=== PATIENT | female | born 1980 | race Caucasian/White ===

== ENCOUNTER → 2019-10-16 09:34 | Outpatient (BNVA) | payer MEDICARE, OTHER, SELFPAY | PROVIDERS: Family Provider Family Medicine; PCP Nurse Practitioner; Visit Provider Specialist | DX: G35 Multiple sclerosis (principal); F17.210 Nicotine dependence, cigarettes, uncomplicated | CPT/HCPCS: 99213 ==

== ENCOUNTER → 2019-11-02 07:58 | Outpatient (BNVA) | payer MEDICARE, OTHER, SELFPAY | PROVIDERS: Family Provider Family Medicine; PCP Nurse Practitioner; Visit Provider Specialist | DX: G43.711 Chronic migraine without aura, intractable, with status migrainosus (principal); G35 Multiple sclerosis; F17.290 Nicotine dependence, other tobacco product, uncomplicated | CPT/HCPCS: 64615; 99213; J0585 ==

== ENCOUNTER → 2020-01-25 08:30 | Outpatient (BNVA) | payer MEDICARE, OTHER, SELFPAY | PROVIDERS: Family Provider Family Medicine; PCP Nurse Practitioner; Visit Provider Specialist | DX: G43.711 Chronic migraine without aura, intractable, with status migrainosus (principal); G35 Multiple sclerosis; G47.419 Narcolepsy without cataplexy; F17.210 Nicotine dependence, cigarettes, uncomplicated | CPT/HCPCS: 64615; 99213; J0585 ==

== ENCOUNTER 2020-08-26 06:59 | Outpatient (RCR) | payer MEDICARE, OTHER, SELFPAY ==
[2020-08-22 06:20] VITALS: BP 108/65; PULSE 96; RESP 18; TEMP 36.9; O2SAT 98
[2020-08-22 07:37] VITALS: BMI 21.9
[2020-08-23 07:03] VITALS: BP 115/73; PULSE 107; RESP 18; TEMP 37.1; O2SAT 98
[2020-08-24 07:08] VITALS: BP 93/74; PULSE 101; RESP 18; TEMP 36.7; O2SAT 98
[2020-08-25 06:55] VITALS: BP 122/78; PULSE 90; RESP 18; TEMP 36.8; O2SAT 100
[2020-08-26 06:51] VITALS: BP 125/78; PULSE 101; RESP 16; TEMP 37.1; O2SAT 97
== END 2020-09-05 23:59 | disposition home or self-care (01) ==
LOC: OPS 06:59
PROVIDERS: Visit Provider Specialist
DX: G35 Multiple sclerosis (principal)
CPT/HCPCS: 96365; 96366; J2930; J7050

== ENCOUNTER 2020-09-04 07:40 | Outpatient (CLI) | payer MEDICARE, OTHER, SELFPAY ==
--- NOTE | 2020-09-04 07:48 | MR_ITS ---
WS: [id number] MRI CERVICAL SPINE NONCONTRAST AND CONTRAST TECHNIQUE: Sagittal T1, T2 and STIR imaging. Axial T2, gradient, and fiesta imaging. CLINICAL INFORMATION: MS COMPARISON: MRI November 04, 2017 FINDINGS: Straightening of the normal cervical lordosis. Cord signal is normal. No significant cord atrophy. Sp inal canal is patent. No visualized demyelinating lesions within the cervical cord. Cord signal is no rmal. No abnormal gadolinium enhancement. C2-C3: Normal. C3-C4: Normal. C4-C5: Normal. C5-C6: Mild disc bulging with a tiny shallow central protrusion. Mild facet arthropathy. Spinal canal and foramen are patent. C6-C7: No significant disc bulging. Mild facet arthropathy. Spinal canal and foramen are patent. C7-T1: Normal. Visualized brain stem structures: Normal. Prevertebral soft tissues: Normal. MR/MR cervical spine wo/w [id number] IMPRESSION: 1. No demyelinating lesions within the cervical cord. Cervical cord signal is normal. 2. No significant cord atrophy. 3. Mild disc bulging C5-C6 with slight effacement of ventral thecal sac. Spina l canal and foramen are patent. 4. No other significant findings.
--- NOTE | 2020-09-04 07:48 | MR_ITS ---
WS: [id number] MRI HEAD WITH CONTRAST TECHNIQUE: Sagittal T1, T2 axial, T2 axial FLAIR, axial susceptibility weighted imaging, axial diffus ion weighted images, and coronal T2 images were obtained. Pre and post-T1 axial and post T1 coronal i mages. ADC and FSPGR images. CLINICAL INFORMATION: MS COMPARISON: MRI 4 , MRI 3 FINDINGS: No evidence of restricted diffusion to suggest acute ischemia. Ventricular system and basal cisterns are patent. Advanced patchy supratentorial periventricular white matter changes consistent with histo ry of chronic demyelinating disease. Lesion distribution and white matter burden is not significantly changed compared to the prior examination. No evidence of disease progression. Moderate symmetric at rophy involving the corpus callosum. Moderate to advanced T1 hypointense lesion load. Mild parenchyma l volume loss. No abnormal gadolinium enhancement to indicate active disease. Normal visualized dural venous sinuses. Normal optic chiasm and pituitary infundibulum. No hemosideri n on susceptibly weighted images. 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 MR/MR head wo/w con [id number] IMPRESSION: 1. Moderate to advanced patchy supratentorial white matter changes consistent with chronic demyelinating disease. 2. Number and distribution of lesions is not significantly changed compared to previous. No evidence of disease progression. 3. Moderate symmetric atrophy of the corpus callosum. 4. Moderate to advanced T1 hypointense lesion load. 5. No enhancing lesions to indicate active disease.
== END 2020-09-04 07:41 | disposition home or self-care (01) ==
LOC: RADWPI 07:44
PROVIDERS: PCP Nurse Practitioner; Visit Provider Specialist
DX: G35 Multiple sclerosis (principal); G31.9 Degenerative disease of nervous system, unspecified
CPT/HCPCS: 70553; 72156; A9579

== ENCOUNTER → 2020-10-09 13:28 | Outpatient (BNVA) | payer OTHER, MEDICARE, SELFPAY | PROVIDERS: PCP Nurse Practitioner; Visit Provider Specialist | DX: G35 Multiple sclerosis (principal); G47.419 Narcolepsy without cataplexy; N31.9 Neuromuscular dysfunction of bladder, unspecified; F17.210 Nicotine dependence, cigarettes, uncomplicated | CPT/HCPCS: 99214 ==

== ENCOUNTER 2020-12-19 07:48 | Outpatient (CLI) | payer OTHER, MEDICARE, SELFPAY ==
--- NOTE | 2020-12-19 08:00 | US_ITS ---
WS: [id number] RENAL ULTRASOUND HISTORY: NEUROGENIC BLADDER COMPARISON: None available. TECHNIQUE: 2-D and color Doppler imaging of the kidney submitted. Right kidney: 11.5 cm x 4.9 cm x 4.1 cm. Normal size kidney. Mild increased echogenicity with no hydronephrosis. Left kidney: 10.8 cm x 4.1 cm x 4.4 cm. Normal size with slight increased echogenicity. No hydronephrosis. Aorta: Normal. Urinary Bladder: Normally distended urinary bladder. No intraluminal filling defects. US/US renal BI* [id number] IMPRESSION: 1. No hydronephrosis. 2. Mild chronic medical renal disease. 3. Normally distended bladder with no intraluminal filling defects.
== END 2020-12-19 07:49 | disposition home or self-care (01) ==
LOC: RAD 07:51
PROVIDERS: PCP Nurse Practitioner; Visit Provider Urology
DX: N31.9 Neuromuscular dysfunction of bladder, unspecified (principal); N18.9 Chronic kidney disease, unspecified
CPT/HCPCS: 76770; 81003

== ENCOUNTER → 2021-07-08 13:19 | Outpatient (BNVA) | payer OTHER, MEDICARE, SELFPAY | PROVIDERS: PCP Nurse Practitioner; Visit Provider Specialist | DX: G35 Multiple sclerosis (principal); N31.9 Neuromuscular dysfunction of bladder, unspecified; G47.419 Narcolepsy without cataplexy; M79.7 Fibromyalgia; F32.A Depression, unspecified; F17.210 Nicotine dependence, cigarettes, uncomplicated | CPT/HCPCS: 99214 ==

== ENCOUNTER 2021-10-16 07:55 | Outpatient (CLI) | payer OTHER, MEDICARE, SELFPAY ==
--- NOTE | 2021-10-16 08:11 | US_ITS ---
WS: [id number] TRANSABDOMINAL PELVIC ULTRASOUND HISTORY: LLQ ABDOMINAL PAIN/OVARIAN CYST Patient refused transvaginal imaging. COMPARISON: None available. Status post hysterectomy. No midline mass. Right ovary: Prior oophorectomy. Left ovary: 4.3 cm x 3.1 cm x 2.5 cm; no solid or cystic mass. Small follicles with very mild increas ed echogenicity suggesting hemorrhage and septations. No solid mass. No free fluid in the cul-de-sac. US/US pelvic complete* [id number] IMPRESSION: 1. Unremarkable appearing LEFT ovary. 2. Status post hysterectomy and RIGHT oophorectomy.
[2021-10-16 09:50] LABS: Add Urine Microscopic? NO; Charge for UA Resulting for Rev
[2021-10-16 09:57] LABS: Bilirubin Urine Neg (Negative); Blood Urine Neg (Negative); Glucose Urine UA Norm (Normal); Ketones Urine Negative (Negative); Leukocyte Esterase Urine Negative (Negative); Nitrate Urine Negative (Negative); Protein Urine Neg (Negative); Specific Gravity, Urine 1.005 (1.005-1.030); Urine Appearance Clear (CLEAR); Urine Color Yellow (Yellow); Urobilinogen Urine Norm (Negative); pH Urine 7 (5-7)
== END 2021-10-16 07:56 | disposition home or self-care (01) ==
LOC: RAD 08:05
PROVIDERS: Specialist; PCP Nurse Practitioner; Visit Provider Nurse Practitioner
DX: R10.32 Left lower quadrant pain (principal); G35 Multiple sclerosis; Z90.710 Acquired absence of both cervix and uterus; Z90.721 Acquired absence of ovaries, unilateral
CPT/HCPCS: 76856; 81003

== ENCOUNTER 2021-12-22 07:49 | Outpatient (CLI) | payer OTHER, MEDICARE, SELFPAY ==
--- NOTE | 2021-12-22 07:58 | MR_ITS ---
WS: [id number] MRI BRAIN WITH AND WITHOUT CONTRAST HISTORY: MULTIPLE SCLEROSIS COMPARISON: 09/04/2020 and 01/02/2019 TECHNIQUE: Multiplanar imaging performed through the brain with MultiHance 15 ml's IV. No acute infarcts are seen. No diffusion abnormalities. There is extensive periventricular and callos al septal confluent and patchy signal abnormalities from patient's known demyelinating disease. Extra cortical lesion involving the posterior paramedian LEFT frontal lobe. T2 signal abnormality noted in the temporal lobe, RIGHT greater than LEFT. No white matter lesions are identified within the cerebel lum. No chris abnormality. No susceptibility artifacts or prior lacunar infarcts. There is very mild cerebral atrophy. There are a few scattered FLAIR signal hyperintensities in the c kika radiata which are probably ischemic and microvascular changes. Low-attenuation burden on the T1 sequence is similar to the prior examination. Clivus and pituitary gland are normal. Again noted is a complex cystic mass associated with the pinea l gland which is stable. Visualized posterior fossa and brainstem are also normal. Postcontrast images are negative for masses or vascular malformations. There is no enhancement within the white matter lesions. LEFT A1 segment is hypoplastic. No interval change. Dural venous sinuses are normal. Paranasal sinuses: Mild mucoperiosteal thickening throughout the sinus cavities. No air-fluid levels. Small mucous retention cyst or polyp in the LEFT maxillary sinus. Mastoid air cells: Normal. Calvarium and scalp: Normal. MR/MR head wo/w con [id number] IMPRESSION: 1. Moderate, stable white matter lesions in the distribution consistent with c hronic demyelinating disease. No progression in size and number of the lesions. 2. No focal areas of enhancement to suggest active demyelination. 3. Stable pineal gland complex cystic mass. 4. T1 hypointense periventricular lesions associated with demyelination are st able.
[2021-12-22] MEDS: gadobenate dimeglumine 20 mL vial IV (08:54)
== END 2021-12-22 07:50 | disposition home or self-care (01) ==
LOC: RAD 07:51
PROVIDERS: PCP Nurse Practitioner; Visit Provider Nurse Practitioner Family
DX: G35 Multiple sclerosis (principal)
CPT/HCPCS: 70553

== ENCOUNTER → 2022-01-14 08:21 | Outpatient (BNVA) | payer OTHER, MEDICARE, SELFPAY | PROVIDERS: PCP Family Medicine; Referring Provider Specialist; Visit Provider Anesthesiology Pain Medicine | DX: M51.16 Intervertebral disc disorders with radiculopathy, lumbar region (principal); M50.90 Cervical disc disorder, unspecified, unspecified cervical region; Z79.891 Long term (current) use of opiate analgesic | CPT/HCPCS: 99204 ==

== ENCOUNTER → 2022-01-26 13:38 | Outpatient (BNVA) | payer OTHER, MEDICARE, SELFPAY | PROVIDERS: PCP Family Medicine; Visit Provider Anesthesiology Pain Medicine | DX: M54.16 Radiculopathy, lumbar region (principal); F17.210 Nicotine dependence, cigarettes, uncomplicated | CPT/HCPCS: 62323; J1040; J3490 ==

== ENCOUNTER → 2022-02-10 08:39 | Outpatient (BNVA) | payer OTHER, MEDICARE, SELFPAY | PROVIDERS: PCP Family Medicine; Visit Provider Anesthesiology Pain Medicine | DX: M51.16 Intervertebral disc disorders with radiculopathy, lumbar region (principal); M50.90 Cervical disc disorder, unspecified, unspecified cervical region; F17.210 Nicotine dependence, cigarettes, uncomplicated | CPT/HCPCS: 99213 ==

== ENCOUNTER 2022-03-31 07:24 | Outpatient (CLI) | payer OTHER, MEDICARE, SELFPAY ==
--- NOTE | 2022-03-31 07:36 | MR_ITS ---
WS: [email or web address] MRI HEAD WITH CONTRAST TECHNIQUE: Sagittal T1, T2 axial, T2 axial FLAIR, axial susceptibility weighted imaging, axial diffus ion weighted images, and coronal T2 images were obtained. Pre and post-T1 axial and post T1 coronal i mages. ADC and FSPGR images. CLINICAL INFORMATION: MULTIPLE SCLEROSIS COMPARISON: 12/22/2021 and 09/04/2020. 2017 2018. FINDINGS: Moderate supratentorial periventricular and pericallosal white matter changes compatible with history of demyelinating disease. Diffuse moderate to advanced atrophy of the corpus callosum with multiple pericallosal lesions. Enhancing new lesion in the LEFT centrum semiovale compatible with active demyelinating disease. No o ther enhancing lesions. Moderate to advanced T1 hypointense lesion load. 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 Paranasal sinuses and mastoid air cells well aerated. MR/MR head wo/w con [id number] IMPRESSION: 1. Enhancing demyelinating lesion in the LEFT centrum semiovale compatible wit h active demyelinating lesion. No other enhancing lesions. 2. Moderate patchy periventricular supratentorial white matter changes otherwi se stable compared to previous. 3. Moderate to advanced atrophy corpus callosum appears slightly progressed wi th pericallosal and callosal lesions similar to previous. 4. Stable moderate to advanced T1 hypointense lesion load.
[2022-03-31] MEDS: gadobenate dimeglumine 5 mL vial IV (09:01)
== END 2022-03-31 07:25 | disposition home or self-care (01) ==
LOC: RAD 07:24
PROVIDERS: PCP Family Medicine; Visit Provider Nurse Practitioner Family
DX: G35 Multiple sclerosis (principal); G31.9 Degenerative disease of nervous system, unspecified
CPT/HCPCS: 70553

== ENCOUNTER → 2022-04-07 15:02 | Outpatient (BNVA) | payer OTHER, MEDICARE, SELFPAY | PROVIDERS: PCP Family Medicine; Visit Provider Specialist | DX: G35 Multiple sclerosis (principal) | CPT/HCPCS: 99214 ==

== ENCOUNTER 2022-05-13 14:49 | Outpatient (CLI) | payer OTHER, MEDICARE, SELFPAY ==
--- NOTE | 2022-05-13 15:15 | MR_ITS ---
WS: [email or web address] MRI LUMBAR SPINE NONCONTRAST HISTORY: Spinal stenosis. Low back pain. History of MS. COMPARISON: 11/04/2018 TECHNIQUE: Sagittal and axial multisequence imaging is submitted. Normal lumbar alignment with no compression fractures or marrow edema. Mild disc desiccation at L4-5 and L5-S1, similar to the prior study. Conus terminates normally at L1-2 disc level. L1-L2: Normal. L2-L3: Normal. L3-L4: Normal. L4-L5: Mild disc bulging with a central disc protrusion and annular fissure. Disc protrusion is very slightly larger than on the prior study. Mild bilateral narrowing of the subarticular recesses. No fo raminal stenosis. L5-S1: Focal central disc protrusion with mild contact on the RIGHT S1 nerve root. Disc is very sligh tly increased in size as compared to 11/04/2018. No foraminal stenosis. Paravertebral soft tissues are negative. 11 mm LEFT ovarian follicle. MR/MR lumbar spine wo con* [id number] IMPRESSION: 1. Central disc protrusion with annular fissure at L4-5. Mild subarticular rec ess narrowing. Mild progression since the prior study. 2. Focal central disc protrusion at L5-S1 with mild progression since the prio r study with mild contact on the RIGHT S1 nerve root.
== END 2022-05-13 14:50 | disposition home or self-care (01) ==
PROVIDERS: PCP Family Medicine; Visit Provider Anesthesiology Pain Medicine
DX: M48.062 Spinal stenosis, lumbar region with neurogenic claudication (principal); M51.27 Other intervertebral disc displacement, lumbosacral region
CPT/HCPCS: 72148

== ENCOUNTER → 2022-07-13 08:52 | Outpatient (BNVA) | payer MEDICARE, OTHER, SELFPAY | PROVIDERS: PCP Family Medicine; Visit Provider Anesthesiology Pain Medicine | DX: M50.90 Cervical disc disorder, unspecified, unspecified cervical region (principal); M51.16 Intervertebral disc disorders with radiculopathy, lumbar region; F17.210 Nicotine dependence, cigarettes, uncomplicated; M79.604 Pain in right leg; M79.605 Pain in left leg | CPT/HCPCS: 99213 ==

== ENCOUNTER → 2022-08-10 07:48 | Outpatient (BNVA) | payer MEDICARE, OTHER, SELFPAY | PROVIDERS: PCP Family Medicine; Visit Provider Specialist | DX: G35 Multiple sclerosis (principal); G47.419 Narcolepsy without cataplexy; M51.16 Intervertebral disc disorders with radiculopathy, lumbar region; G82.20 Paraplegia, unspecified; N31.9 Neuromuscular dysfunction of bladder, unspecified; Z91.81 History of falling | CPT/HCPCS: 99215 ==

== ENCOUNTER 2022-08-17 13:21 | Outpatient (RCR) | payer MEDICARE, OTHER, SELFPAY ==
[2022-08-13 08:27] VITALS: BP 112/75; PULSE 89; RESP 18; TEMP 36.6; O2SAT 96
[2022-08-14 13:14] VITALS: BP 107/91; PULSE 90; RESP 18; TEMP 36.9; O2SAT 95
[2022-08-15 09:12] VITALS: BP 119/70; PULSE 68; RESP 18; TEMP 36.6; O2SAT 96
[2022-08-16 08:45] VITALS: BP 131/89; PULSE 84; RESP 18; TEMP 36.8; O2SAT 96
[2022-08-16 10:15] VITALS: BP 137/78; PULSE 71; RESP 18; TEMP 36.8; O2SAT 97
[2022-08-17 13:46] VITALS: BP 126/66; PULSE 92; RESP 18; TEMP 37; O2SAT 94
--- NOTE | 2022-08-17 14:35 | PC.NURSE ---
Pt to GI infusions for dose 5 of 5 doses of IV Solumedrol. Pt states she is doing much better and symptoms have improved.
== END 2022-09-05 23:59 | disposition home or self-care (01) ==
LOC: GILAB 13:21
PROVIDERS: PCP Family Medicine; Visit Provider Specialist
DX: G35 Multiple sclerosis (principal)
CPT/HCPCS: 96365; J2930; J7050

== ENCOUNTER 2022-09-01 09:53 | Outpatient (CLI) | payer MEDICARE, OTHER, SELFPAY ==
[2022-09-01 09:57] VITALS: BP 124/84; PULSE 87; RESP 18; TEMP 36.3; O2SAT 97
[2022-09-01] MEDS: sodium chloride 0.9% 250 ML 50 ML IV (10:27)
[2022-09-01] MEDS: acetaminophen 500 mg Tablet 1000 MG PO (10:28)
[2022-09-01] MEDS: diphenhydrAMINE 50 mg/mL SDV 1mL IVP (10:30)
[2022-09-01 11:13] VITALS: BP 119/95; PULSE 80; RESP 18; TEMP 36.4; O2SAT 98
[2022-09-01] MEDS: diphenhydrAMINE 50 mg/mL SDV 1mL 25 MG IVP (12:21)
[2022-09-01 12:22] VITALS: BP 112/62; PULSE 86; RESP 18; TEMP 36.6; O2SAT 95
[2022-09-01 14:11] VITALS: BP 123/80; PULSE 91; RESP 18; TEMP 36.4; O2SAT 97
== END 2022-09-01 09:54 | disposition home or self-care (01) ==
LOC: ONCMED 09:53
PROVIDERS: PCP Family Medicine; Visit Provider Specialist
DX: G35 Multiple sclerosis (principal)
CPT/HCPCS: 96361; 96365; 96366; 96375; A4222; J1200; J2350; J2920; J7050

== ENCOUNTER 2022-09-14 08:23 | Outpatient (CLI) | payer MEDICARE, OTHER, SELFPAY ==
[2022-09-14 08:31] VITALS: BP 133/82; PULSE 85; RESP 18; TEMP 37.2; O2SAT 96
[2022-09-14] MEDS: sodium chloride 0.9% 250 ML 50 ML IV (09:03)
[2022-09-14] MEDS: acetaminophen 500 mg Tablet 1000 MG PO (09:05)
[2022-09-14] MEDS: diphenhydrAMINE 50 mg/mL SDV 1mL IVP (09:06)
[2022-09-14 09:48] VITALS: BP 125/74; PULSE 90; RESP 18; TEMP 37.2; O2SAT 96
[2022-09-14 10:30] VITALS: BP 118/69; PULSE 84; RESP 18; TEMP 36.9; O2SAT 94
[2022-09-14 10:53] VITALS: BP 126/78; PULSE 90; RESP 18; TEMP 36.9; O2SAT 94
[2022-09-14 11:23] VITALS: BP 123/72; PULSE 93; RESP 18; TEMP 37.1; O2SAT 92
[2022-09-14 12:00] VITALS: BP 124/72; PULSE 98; RESP 18; TEMP 36.8; O2SAT 96
== END 2022-09-14 08:24 | disposition home or self-care (01) ==
LOC: ONCMED 08:24
PROVIDERS: PCP Family Medicine; Visit Provider Specialist
DX: G35 Multiple sclerosis (principal)
CPT/HCPCS: 96365; 96366; 96375; A4222; J1200; J2350; J2930; J7050

== ENCOUNTER → 2022-09-22 08:40 | Outpatient (BNVA) | payer MEDICARE, OTHER, SELFPAY | PROVIDERS: PCP Family Medicine; Visit Provider Anesthesiology Pain Medicine | DX: M50.90 Cervical disc disorder, unspecified, unspecified cervical region (principal); M51.16 Intervertebral disc disorders with radiculopathy, lumbar region; M79.604 Pain in right leg; M79.605 Pain in left leg | CPT/HCPCS: 99213 ==

== ENCOUNTER → 2022-10-22 11:32 | Outpatient (BNVA) | payer MEDICARE, OTHER, SELFPAY | PROVIDERS: PCP Family Medicine; Visit Provider Specialist | DX: G35 Multiple sclerosis (principal); G82.20 Paraplegia, unspecified; G43.711 Chronic migraine without aura, intractable, with status migrainosus; G47.419 Narcolepsy without cataplexy; Z71.89 Other specified counseling | CPT/HCPCS: 64642; 99213; J0585 ==

== ENCOUNTER → 2022-11-02 13:25 | Outpatient (BNVA) | payer MEDICARE, OTHER, SELFPAY | PROVIDERS: PCP Family Medicine; Visit Provider Anesthesiology Pain Medicine | DX: M54.16 Radiculopathy, lumbar region (principal) | CPT/HCPCS: 62323; J1040 ==

== ENCOUNTER → 2022-11-24 09:55 | Outpatient (BNVA) | payer MEDICARE, OTHER, SELFPAY | PROVIDERS: PCP Family Medicine; Visit Provider Anesthesiology Pain Medicine | DX: M51.16 Intervertebral disc disorders with radiculopathy, lumbar region (principal); M50.90 Cervical disc disorder, unspecified, unspecified cervical region; M79.604 Pain in right leg; M79.605 Pain in left leg | CPT/HCPCS: 99213 ==

== ENCOUNTER → 2022-12-09 07:50 | Outpatient (BNVA) | payer MEDICARE, OTHER, SELFPAY | PROVIDERS: PCP Family Medicine; Visit Provider Specialist | DX: G35 Multiple sclerosis (principal); G82.20 Paraplegia, unspecified; G43.711 Chronic migraine without aura, intractable, with status migrainosus; R00.0 Tachycardia, unspecified; Z79.899 Other long term (current) drug therapy | CPT/HCPCS: 99214 ==

== ENCOUNTER 2023-02-03 07:38 | Outpatient (CLI) | payer MEDICARE, OTHER, SELFPAY ==
--- NOTE | 2023-02-03 08:00 | MR_ITS ---
WS: [id number] MRI LUMBAR SPINE NONCONTRAST TECHNIQUE: Sagittal T1, T2 and STIR imaging. Axial T1 and T2 imaging. CLINICAL INFORMATION: G35 - Multiple sclerosis COMPARISON: MRI May 13, 2022 FINDINGS: Mild lumbar curve. No acute compression. No high-grade central canal stenosis. Normal signal in the l ower thoracic cord. Normal cauda equina nerve rootlets. L1-L2: Mild facet arthropathy. Spinal canal and foramen are patent. L2-L3: Mild facet arthropathy. Spinal canal and foramen are patent. L3-L4: No significant disc bulging. Mild facet arthropathy. Spinal canal and foramen are patent. L4-L5: Mild annular bulging with tiny central protrusion with a small annular fissure. Slight effacem ent of the ventral thecal sac. Spinal canal and foramen are patent. Mild facet arthropathy. L5-S1: Mild annular bulging. Tiny shallow central protrusion. Slight contact of the RIGHT S1 nerve ro ot unchanged from previous. Mild facet arthropathy. Spinal canal and foramen are patent. Incidental Tarlov cysts in the sacrum. MR/MR lumbar spine wo con* [id number] IMPRESSION: 1. Mild lumbar curve. No acute compression. No high-grade central canal stenos is. 2. Tiny central protrusion L4-L5 with a small annular fissure. Slight narrowin g subarticular recess bilaterally. Mild facet arthropathy. 3. Tiny central protrusion L5-S1 with slight contact of the RIGHT S1 nerve beltran t. Mild facet arthropathy. 4. Overall no significant changes compared to previous.
== END 2023-02-03 07:39 | disposition home or self-care (01) ==
LOC: RAD 07:40
PROVIDERS: PCP Family Medicine; Visit Provider Specialist
DX: M47.817 Spondylosis without myelopathy or radiculopathy, lumbosacral region (principal); G35 Multiple sclerosis; G82.20 Paraplegia, unspecified; M79.604 Pain in right leg; M79.605 Pain in left leg
CPT/HCPCS: 72148

== ENCOUNTER → 2023-02-04 13:52 | Outpatient (BNVA) | payer MEDICARE, OTHER, SELFPAY | PROVIDERS: PCP Family Medicine; Visit Provider Specialist | DX: G35 Multiple sclerosis (principal); G82.20 Paraplegia, unspecified; M51.16 Intervertebral disc disorders with radiculopathy, lumbar region; G47.419 Narcolepsy without cataplexy | CPT/HCPCS: 99214 ==

== ENCOUNTER → 2023-02-23 09:47 | Outpatient (BNVA) | payer MEDICARE, OTHER, SELFPAY | PROVIDERS: PCP Family Medicine; Visit Provider Anesthesiology Pain Medicine | DX: M50.90 Cervical disc disorder, unspecified, unspecified cervical region (principal); M51.16 Intervertebral disc disorders with radiculopathy, lumbar region | CPT/HCPCS: 99214 ==

== ENCOUNTER → 2023-03-31 08:53 | Outpatient (BNVA) | payer MEDICARE, OTHER, SELFPAY | PROVIDERS: PCP Family Medicine; Visit Provider Specialist | DX: G35 Multiple sclerosis (principal); R53.83 Other fatigue | CPT/HCPCS: 99214 ==

== ENCOUNTER → 2023-04-29 14:50 | Outpatient (BNVA) | payer MEDICARE, OTHER, SELFPAY | PROVIDERS: PCP Family Medicine; Visit Provider Specialist | DX: G35 Multiple sclerosis (principal) | CPT/HCPCS: 99215 ==

== ENCOUNTER 2023-06-10 07:48 | Oncology outpatient (recurring) (ONCR) | payer MEDICARE, OTHER, SELFPAY ==
[2023-06-10 08:22] VITALS: BP 142/72; PULSE 87; RESP 16; O2SAT 98
[2023-06-10] MEDS: acetaminophen 500 mg Tablet 1000 MG PO (08:49)
[2023-06-10] MEDS: sodium chloride 0.9% 250 ML 100 ML IV (08:51)
[2023-06-10] MEDS: diphenhydrAMINE 50 mg/mL SDV 1mL 25 MG IVP (08:54)
[2023-06-10] MEDS: methylPREDNISolone sod succ 125 mg SDV IVP (08:55)
[2023-06-10] MEDS: ocrelizumab 600 MG in sodium chloride 0.9% 500 ML 100 MG IV (09:30)
[2023-06-10 09:35] VITALS: BP 110/69; PULSE 82; RESP 16; TEMP 36.1; O2SAT 96
[2023-06-10 09:51] VITALS: BP 109/62; PULSE 85; RESP 16; TEMP 36.8; O2SAT 96
[2023-06-10 10:12] VITALS: BP 106/64; PULSE 84; RESP 16; TEMP 36.9; O2SAT 96
[2023-06-10 11:11] VITALS: BP 106/67; PULSE 67; RESP 16; TEMP 37.1; O2SAT 95
[2023-06-10 12:35] VITALS: BP 111/56; PULSE 57; RESP 16; TEMP 36.2; O2SAT 96
== END 2023-07-06 23:59 | disposition home or self-care (01) ==
LOC: ONCMED 07:49
PROVIDERS: PCP Family Medicine; Visit Provider Specialist
DX: G35 Multiple sclerosis (principal)
CPT/HCPCS: 96365; 96366; 96375; J1200; J2350; J2930; J7040; J7050

== ENCOUNTER → 2023-09-24 15:28 | Outpatient (BNVA) | payer MEDICARE, SELFPAY | PROVIDERS: PCP Family Medicine; Visit Provider Specialist | DX: G35 Multiple sclerosis (principal) | CPT/HCPCS: 99214 ==

== ENCOUNTER 2023-12-10 07:09 | Oncology outpatient (recurring) (ONCR) | payer MEDICARE, SELFPAY ==
[2023-12-10] MEDS: sodium chloride 0.9% 250 ML IV (07:49)
[2023-12-10] MEDS: acetaminophen 500 mg Tablet 1000 MG PO (07:51)
[2023-12-10] MEDS: diphenhydrAMINE 50 mg/mL SDV 1mL 25 MG IVP (07:51)
[2023-12-10] MEDS: methylPREDNISolone sod succ 125 mg/2 mL INJ IVP (07:54)
[2023-12-10] MEDS: ocrelizumab 600 MG in sodium chloride 0.9% 500 ML 100 MG IV (08:24)
[2023-12-10 08:30] VITALS: BP 113/72; PULSE 83; TEMP 37.1; O2SAT 92
[2023-12-10 09:00] VITALS: BP 131/70; PULSE 83; TEMP 36.9; O2SAT 96
[2023-12-10 09:43] VITALS: BP 128/77; PULSE 80; TEMP 36.8; O2SAT 93
[2023-12-10 10:14] VITALS: BP 112/72; PULSE 85; RESP 16; TEMP 36.8; O2SAT 94
[2023-12-10 11:38] VITALS: BP 133/75; PULSE 83; TEMP 36.9; O2SAT 94
== END 2024-01-04 23:59 | disposition home or self-care (01) ==
PROVIDERS: PCP Family Medicine; Visit Provider Specialist
DX: G35 Multiple sclerosis (principal); Z53.9 Procedure and treatment not carried out, unspecified reason
CPT/HCPCS: 96375; 96413; 96415; A4222; J1200; J2350; J2919; J7040; J7050

== ENCOUNTER → 2024-02-01 11:25 | Outpatient (BNVA) | payer MEDICARE, SELFPAY | PROVIDERS: PCP Family Medicine; Referring Provider Family Medicine; Visit Provider Internal Medicine | DX: F32.A Depression, unspecified (principal); G35 Multiple sclerosis; E78.2 Mixed hyperlipidemia; Z13.220 Encounter for screening for lipoid disorders; R23.2 Flushing; R61 Generalized hyperhidrosis; R63.5 Abnormal weight gain; Z68.30 Body mass index [BMI] 30.0-30.9, adult | CPT/HCPCS: 99204 ==

== ENCOUNTER → 2024-02-08 09:07 | Outpatient (BNVA) | payer MEDICARE, SELFPAY | PROVIDERS: PCP Family Medicine; Referring Provider Internal Medicine; Visit Provider Internal Medicine | DX: F32.A Depression, unspecified (principal); G35 Multiple sclerosis; Z13.220 Encounter for screening for lipoid disorders; E78.2 Mixed hyperlipidemia; Z79.899 Other long term (current) drug therapy | CPT/HCPCS: 80061; 82670; 83001; 83002; 84305; 84439; 84443 ==

== ENCOUNTER → 2024-03-24 12:16 | Outpatient (BNVA) | payer MEDICARE, SELFPAY | PROVIDERS: PCP Family Medicine; Visit Provider Specialist | DX: G35 Multiple sclerosis (principal) | CPT/HCPCS: 99214 ==

== ENCOUNTER → 2024-05-03 09:58 | Outpatient (BNVA) | payer MEDICARE, SELFPAY | PROVIDERS: PCP Family Medicine; Visit Provider Internal Medicine | DX: E78.2 Mixed hyperlipidemia (principal); R61 Generalized hyperhidrosis; R63.5 Abnormal weight gain; Z68.28 Body mass index [BMI] 28.0-28.9, adult | CPT/HCPCS: 99214 ==

== ENCOUNTER → 2024-05-30 09:29 | Outpatient (BNVA) | payer MEDICARE, SELFPAY | PROVIDERS: PCP Family Medicine; Visit Provider Nurse Practitioner | DX: S59.911A Unspecified injury of right forearm, initial encounter (principal); W19.XXXA Unspecified fall, initial encounter; M79.601 Pain in right arm | CPT/HCPCS: 73090; 73110 ==

== ENCOUNTER 2024-06-08 07:13 | Oncology outpatient (recurring) (ONCR) | payer MEDICARE, SELFPAY ==
[2024-06-08] MEDS: sodium chloride 0.9% 250 ML 75 ML IV (08:17)
[2024-06-08] MEDS: diphenhydrAMINE 50 mg/mL SDV 1mL 25 MG IVP ×2 (08:23→09:55)
[2024-06-08] MEDS: acetaminophen 500 mg Tablet 1000 MG PO (08:25)
[2024-06-08] MEDS: methylPREDNISolone sod succ 125 mg/2 mL INJ IVP (08:27)
[2024-06-08 08:50] VITALS: BP 120/65; PULSE 92; RESP 18; TEMP 36.8; O2SAT 98
[2024-06-08] MEDS: ocrelizumab 600 MG in sodium chloride 0.9% 500 ML 100 MG IV (08:58)
[2024-06-08 12:25] VITALS: BP 104/60; PULSE 85; RESP 18; TEMP 36.6; O2SAT 92
[2024-06-08 13:25] VITALS: BP 125/72; PULSE 84; RESP 17; TEMP 35.9; O2SAT 92
--- NOTE | 2024-06-08 16:27 | PC.NURSE ---
0950 patient had an episode with a discomfort in her throat with the reaction she states she feels like she has had this before and mild reaction protocol followed with stopping IV Ocrevus with IV Benadryl 25mg IVP given with the symptoms easing and relief after 45 minutes of IV fluids then resumed with no further reactions noted and she had finished the complete infusion.shaye
== END 2024-07-06 23:59 | disposition home or self-care (01) ==
PROVIDERS: PCP Family Medicine; Visit Provider Specialist
DX: G35 Multiple sclerosis (principal); Z79.899 Other long term (current) drug therapy
CPT/HCPCS: 96375; 96413; 96415; A4222; J1200; J2350; J2919; J7040; J7050

== ENCOUNTER 2024-08-15 08:28 | Outpatient (CLI) | payer MEDICARE, SELFPAY ==
--- NOTE | 2024-08-15 08:36 | MM_ITS ---
WS: [id number] BILATERAL 3D TOMOSYNTHESIS DIGITAL SCREENING MAMMOGRAM WITH CAD CLINICAL INFORMATION: SCREENING HISTORY: Screening mammogram. No current complaints. COMPARISON: 2018 TECHNIQUE: Bilateral CC and MLO. FINDINGS: The breast are composed of extremely dense tissue, which can limit the detection of small underlying mass lesions. No suspicious focal mass, asymmetry, calcifications, or architectural distortion. No ev idence of malignancy. MM/MM scr tomosynthesis [id number] IMPRESSION: DENSITY: The breasts are extremely dense, which lowers the sensitivity of mammo graphy. BI-RADS: 1 - Negative FOLLOW UP: 1 Year Follow-up Recommend return to annual screening mammography.
== END 2024-08-15 08:29 | disposition home or self-care (01) ==
PROVIDERS: PCP Family Medicine; Visit Provider Family Medicine
DX: Z12.31 Encounter for screening mammogram for malignant neoplasm of breast (principal); R92.333 Mammographic heterogeneous density, bilateral breasts
CPT/HCPCS: 77063; 77067

== ENCOUNTER → 2024-08-22 17:46 | Outpatient (BNVA) | payer MEDICARE, SELFPAY | PROVIDERS: PCP Family Medicine; Visit Provider Nurse Practitioner Family | DX: J02.9 Acute pharyngitis, unspecified (principal); J06.9 Acute upper respiratory infection, unspecified | CPT/HCPCS: 87071; 87880 ==

== ENCOUNTER → 2024-09-26 12:06 | Outpatient (BNVA) | payer MEDICARE, SELFPAY | PROVIDERS: PCP Family Medicine; Visit Provider Specialist | DX: G35 Multiple sclerosis (principal) | CPT/HCPCS: 99213 ==

== ENCOUNTER → 2024-11-08 12:20 | Outpatient (BNVA) | payer MEDICARE, SELFPAY | PROVIDERS: PCP Family Medicine; Visit Provider Specialist | DX: G35 Multiple sclerosis (principal); N31.9 Neuromuscular dysfunction of bladder, unspecified; F03.90 Unspecified dementia, unspecified severity, without behavioral disturbance, psychotic disturbance, mood disturbance, and anxiety | CPT/HCPCS: 81003; 87086; 99215 ==

== ENCOUNTER → 2024-11-10 08:44 | Outpatient (BNVA) | payer MEDICARE, SELFPAY | PROVIDERS: PCP Family Medicine; Referring Provider Internal Medicine; Visit Provider Internal Medicine | DX: R23.2 Flushing (principal); E78.2 Mixed hyperlipidemia | CPT/HCPCS: 80061 ==

== ENCOUNTER 2024-11-13 15:25 | Outpatient (CLI) | payer MEDICARE, SELFPAY ==
--- NOTE | 2024-11-13 15:45 | US_ITS ---
WS: [email or web address] ULTRASOUND RENAL TECHNIQUE: Ultrasound examination of both kidneys. CLINICAL INFORMATION: N31.9 - Neuromuscular dysfunction of bladder, unspecified COMPARISON: None. FINDINGS: RIGHT: Right kidney is normal in size and appearance. Echogenicity: Normal. Cortical thickness: 0.9 cm; Normal. Hydronephrosis: None. Perinephric fluid: None. Right kidney measures: 11.0 cm x 5.5 cm x 5.1 cm. LEFT: Left kidney is normal in size and appearance. Echogenicity: Normal. Cortical thickness: 1.0 cm; Normal. Hydronephrosis: None. Perinephric fluid: None. Left kidney measures: 10.2 cm x 4.3 cm x 4.7 cm. Normal visualized aorta. Thick walled and decompressed bladder. US/US renal BI* [id number] IMPRESSION: 1. No hydronephrosis in either kidney. 2. Patient voided 30 minutes prior to procedure. Thick walled and decompressed bladder.
== END 2024-11-13 15:26 | disposition home or self-care (01) ==
PROVIDERS: PCP Family Medicine; Visit Provider Specialist
DX: N31.9 Neuromuscular dysfunction of bladder, unspecified (principal); N32.89 Other specified disorders of bladder
CPT/HCPCS: 76770

== ENCOUNTER 2024-12-07 07:37 | Oncology outpatient (recurring) (ONCR) | payer MEDICARE, SELFPAY ==
[2024-12-07 08:00] VITALS: BP 120/79; PULSE 96; RESP 18; TEMP 37; O2SAT 96
[2024-12-07] MEDS: acetaminophen 500 mg Tablet 1000 MG PO (08:19)
[2024-12-07] MEDS: diphenhydrAMINE 50 mg/mL SDV 1mL 25 MG IVP ×2 (08:20→09:35)
[2024-12-07] MEDS: sodium chloride 0.9% 250 ML 75 ML IV (08:24)
[2024-12-07] MEDS: methylPREDNISolone sod succ 125 mg/2 mL INJ IVP (08:31)
[2024-12-07] MEDS: ocrelizumab 600 MG in sodium chloride 0.9% 500 ML 100 MG IV (08:49)
[2024-12-07 08:55] VITALS: BP 110/60; PULSE 91; RESP 18; TEMP 37.3; O2SAT 96
[2024-12-07 12:15] VITALS: BP 114/69; PULSE 102; RESP 18; O2SAT 96
--- NOTE | 2024-12-07 15:38 | PC.NURSE ---
09:35 am patient comlained of having scratchy throat and itchy nose with the Ocrevus stopped with the normal saline opened to 200ml until no further concerns with scratchy throat or itchy nose which restarted 10:15 am at 200ml over 30 minutes then increased to 250 ml then 300ml until finished at 12:15pm with no further complaints or concerns . She left unit with no itching ,scratchy throat. She states feeling fine with no further issues.shaye
== END 2024-12-07 23:59 | disposition home or self-care (01) ==
LOC: ONCMED 07:37
PROVIDERS: PCP Family Medicine; Visit Provider Specialist
DX: G35 Multiple sclerosis (principal); Z79.899 Other long term (current) drug therapy
CPT/HCPCS: 96375; 96413; 96415; A4222; J1200; J2350; J2919; J7040; J7050; J9999

== ENCOUNTER → 2024-12-12 07:50 | Outpatient (BNVA) | payer MEDICARE, SELFPAY | PROVIDERS: PCP Family Medicine; Visit Provider Internal Medicine | DX: E78.2 Mixed hyperlipidemia (principal); R23.2 Flushing; R61 Generalized hyperhidrosis; R63.5 Abnormal weight gain | CPT/HCPCS: 99214 ==

== ENCOUNTER 2025-04-18 12:00 | Oncology outpatient (recurring) (ONCR) | payer MEDICARE, SELFPAY ==
[2025-04-16 13:56] VITALS: BP 120/79; PULSE 62; RESP 16; TEMP 36.6; O2SAT 98
[2025-04-16 15:27] VITALS: BP 110/74; PULSE 62; TEMP 36.4; O2SAT 94
[2025-04-17 11:43] VITALS: BP 124/79; PULSE 92; TEMP 37.2; O2SAT 96
[2025-04-17 13:15] VITALS: BP 118/76; PULSE 101; RESP 17; TEMP 36.8; O2SAT 98
[2025-04-18 13:01] VITALS: BP 130/79; PULSE 80; RESP 17; TEMP 36.7; O2SAT 97
== END 2025-05-06 23:59 | disposition home or self-care (01) ==
PROVIDERS: PCP Family Medicine; Visit Provider Specialist
DX: G35 Multiple sclerosis; Z79.899 Other long term (current) drug therapy; Z53.9 Procedure and treatment not carried out, unspecified reason
CPT/HCPCS: 96365; J2919; J7050

== ENCOUNTER → 2025-05-08 12:05 | Outpatient (BNVA) | payer MEDICARE, SELFPAY | PROVIDERS: PCP Family Medicine; Visit Provider Specialist | DX: G35 Multiple sclerosis (principal); F03.90 Unspecified dementia, unspecified severity, without behavioral disturbance, psychotic disturbance, mood disturbance, and anxiety; F32.A Depression, unspecified; N31.9 Neuromuscular dysfunction of bladder, unspecified | CPT/HCPCS: 99214 ==

== ENCOUNTER 2025-06-05 08:00 | Oncology outpatient (recurring) (ONCR) | payer MEDICARE, SELFPAY ==
--- NOTE | 2025-05-17 08:23 | MR_ITS ---
WS: [id number] MRI BRAIN WITH AND WITHOUT CONTRAST HISTORY: WORSENING SYMPTOMS/MULTIPLE SCLEROSIS COMPARISON: 12/22/2021 TECHNIQUE: Multiplanar imaging performed through the brain with MultiHance 17 ml's IV. No diffusion abnormalities. No acute infarct. Moderate periventricular and callosal septal confluent and patchy signal abnormality from demyelinating disease. Previously described posterior LEFT paramedian frontal lobe signal abnormality is reidentified with no progression. Mild bilateral temporal lobe white matter lesions, RIGHT greater than LEFT. No signal abnormality within the cerebellum or chris. Minimal cerebral atrophy. No hippocampal atrophy. Mild atrophy of the corpus callosum. No susceptibility artifacts or prior lacunar infarcts. Ventricles and extra-axial spaces are normal. Clivus and pituitary gland are normal. Visualized posterior fossa and brainstem are also normal. No enhancing masses are identified on the postcontrast imaging. The previously described demyelinating lesion in the LEFT centrum semiovale does not enhance. Dural venous sinuses are normal. Paranasal sinuses: Well aerated with no significant disease. Mastoid air cells: Normal. Calvarium and scalp: Normal. MR/MR head wo/w con [id number] IMPRESSION: 1. Normal diffusion abnormality. No acute infarct or hemorrhage. 2. No enhancing or active demyelinating lesions identified. 3. Moderate periventricular, supratentorial white matter lesions are unchanged . No obvious progression. 4. Reidentified is mild atrophy of the corpus callosum. 5. No significant hippocampal atrophy.
[2025-05-17 09:29] LABS: Hematocrit 45.1 % (36-47); Hemoglobin 15.00 g/dL (11.27-16.99); Mean Corpuscular HGB Conc 33.3 g/dL (30-55); Mean Corpuscular Hemoglobin 31.7 pg (27-33); Mean Corpuscular Volume 95.3 fl (85-98); Nucleated Red Blood Cells % 0 %; Platelet Count 361 10^3/cmm (157-399); Red Blood Count 4.73 10^6/uL (3.85-5.65); White Blood Count 11.17 10^3/uL (3.29-11.43)
[2025-05-17] MEDS: gadobenate dimeglumine 20 mL vial 17 ML IV (09:46)
[2025-05-17 10:08] LABS: Alanine Aminotransferase 23 U/L (0-33); Albumin Level 4.3 g/dL (3.5-5.2); Alkaline Phosphatase 109 U/L (35-105); Anion Gap 13.0 (5-19); Aspartate Amino Transferase 14 U/L (0-32); Blood Urea Nitrogen 7 mg/dL (6-20); Calcium 9.5 mg/dL (8.5-10.5); Carbon Dioxide 24 mmol/L (22-29); Chloride 108 mmol/L (98-107); Cholesterol 188 mg/dL (0-200); Globulin 2.8 g/dL (1.3-4.6); Glucose 87 mg/dL (65-115); HDL Cholesterol 48 mg/dL (60-100); Osmolality Calculated 289 mOsm/kg (285-295); Potassium 4.0 mmol/L (3.5-5.1); Sodium 141 mmol/L (136-145); Total Protein 7.1 g/dL (6.6-8.7); Triglycerides 80 mg/dL (0-150)
[2025-05-17 10:41] LABS: Vitamin B12 > 2000 pg/mL (232-1245)
[2025-05-17 11:03] LABS: Free T4 Free Thyroxine 1.07 ng/dL (0.82-1.77)
[2025-06-05 07:59] VITALS: BP 126/76; PULSE 98; RESP 18; TEMP 37.2; O2SAT 95
[2025-06-05] MEDS: diphenhydrAMINE 50 mg/mL SDV 1mL 25 MG IVP (09:12)
[2025-06-05] MEDS: methylPREDNISolone sod succ 125 mg/2 mL INJ IVP (09:13)
[2025-06-05 10:15] VITALS: BP 115/75; PULSE 87; RESP 16; TEMP 36.8; O2SAT 95
[2025-06-05 10:30] VITALS: BP 107/65; PULSE 93; RESP 16; TEMP 36.7; O2SAT 96
[2025-06-05 11:30] VITALS: BP 123/71; PULSE 89; RESP 17; TEMP 36.6; O2SAT 95
[2025-06-05 13:10] VITALS: BP 141/81; PULSE 92; RESP 17; TEMP 36.7; O2SAT 95
== END 2025-06-05 23:59 | disposition home or self-care (01) ==
PROVIDERS: PCP Family Medicine; Visit Provider Specialist
DX: Z53.9 Procedure and treatment not carried out, unspecified reason; G35 Multiple sclerosis; Z79.899 Other long term (current) drug therapy
CPT/HCPCS: 36415; 70553; 80053; 80061; 80175; 82607; 84439; 85025; 96375; 96413; 96415; J1200; J2350; J2919; J7040; J7050; J9999

== ENCOUNTER → 2025-06-12 07:52 | Outpatient (BNVA) | payer MEDICARE, SELFPAY | PROVIDERS: PCP Family Medicine; Visit Provider Internal Medicine | DX: R23.2 Flushing (principal); R61 Generalized hyperhidrosis; E78.2 Mixed hyperlipidemia; R63.5 Abnormal weight gain | CPT/HCPCS: 99214 ==

== ENCOUNTER 2025-08-16 07:39 | Outpatient (CLI) | payer MEDICARE, SELFPAY ==
--- NOTE | 2025-08-16 07:51 | MM_ITS ---
WS: [email or web address] BILATERAL SCREENING DIGITAL TOMOSYNTHESIS MAMMOGRAM WITH CAD HISTORY: SCREENING COMPARISON: 08/15/2024, 07/15/2018 Bilateral CC and MLO views with tomosynthesis and synthetic mammography submitted. Computer aided detection analyzed. Breast composition: The breasts are extremely dense, which lowers the sensitivity of mammography. No suspicious masses, microcalcifications or architectural distortion. There are a few small benign-appearing calcifications in each breast. MM/MM [facility] tomosynthesis [id number] IMPRESSION: BI-RADS: 2 - Benign FOLLOW UP: 1 Year Follow-up
== END 2025-08-16 07:40 | disposition home or self-care (01) ==
LOC: RAD 07:43
DX: Z12.31 Encounter for screening mammogram for malignant neoplasm of breast (principal); R92.343 Mammographic extreme density, bilateral breasts; R92.1 Mammographic calcification found on diagnostic imaging of breast
CPT/HCPCS: 77063; 77067